=== PATIENT | male | born 1960 | race Asian ===

== ENCOUNTER → 2024-01-10 18:22 | Outpatient (REF) | payer BC, SELFPAY | LOC: MRI 3T 18:22 | PROVIDERS: ATTENDING PHYSICIAN Internal Medicine Endocrinology, Diabetes & Metabolism; FAMILY PHYSICIAN Family Medicine | DX: D49.7 Neoplasm of unspecified behavior of endocrine glands and other parts of nervous system (principal) | CPT/HCPCS: 70553; A9575 ==

== ENCOUNTER → 2024-07-04 11:47 | Outpatient (REF) | payer BC, SELFPAY ==
[2024-07-04 13:15] LABS: Body Fluid for Eosinophils No Eosinophils seen
== END ==
LOC: REG 11:47
PROVIDERS: ATTENDING PHYSICIAN Specialist; FAMILY PHYSICIAN Family Medicine
DX: N28.1 Cyst of kidney, acquired (principal)
CPT/HCPCS: 36415; 81099